=== PATIENT | female | born 1945 | race Caucasian/White ===

== ENCOUNTER 2020-03-09 11:56 | Emergency (ER) | payer BC ==
[2020-03-09] MEDS ORDERED: TETANUS AND DIPHTHERIA TOXOID 0.5 ML DISP.SYRIN IM ONE (12:12)
--- NOTE | 2020-03-09 12:18 | PDOC ---
History of Present Illness - General Chief Complaint: Injury Stated Complaint: FALL ON SATURDAY Time Seen by Provider: 03/09/20 12:01 History Source: Patient Exam Limitations: No Limitations - History of Present Illness Initial Comments: 03/09/20 12:13 74 yo F h/o vertigo p/w fall on saturday. Patient doesn't think there was anything on the floor that she tripped over. DEnies CP, SOB, or worsening dizziness prior to the fall or afterwards. States she has vertigo at baseline and is taking meclizine. Is usually ambulatory with a cane which helps her feel more stable on her feet. She's not sure if she was using her cane to walk on saturday (unable to recall) because she was only walking a short distance of ~5-6 feet. Of note, family reports that patient was drinking on saturday (as per family patient drinks many days). Denies LOC. Takes asa but otherwise no a/c use. Reports bleeding from her scalp at the time, none now. Only came to the ED today because her daughter came over and saw the dried blood on the floor from the fall and insisted her mother come the ED. Patient has no complaints at this time. Last tetanus unknown. Past History - Medical History Allergies/Adverse Reactions: Allergies Allergy/AdvReac Type Severity Reaction Status Date / Time No Known Allergies Allergy Verified 03/09/20 11:57 Home Medications: Ambulatory Orders Aspirin [ASA -] 81 mg PO DAILY 03/09/20 Atorvastatin Ca [Lipitor] 10 mg PO HS 03/09/20 Meclizine HCl 25 mg PO HS 03/09/20 Metformin HCl [Glucophage] 500 mg PO DAILY 03/09/20 Pramipexole Di-HCl [Mirapex] 2 mg PO BID 03/09/20 Sertraline HCl 50 mg PO DAILY 03/09/20 Review of Systems - Review of Systems Able to Perform ROS?: Yes Comments:: 03/09/20 12:16 GENERAL/CONSTITUTIONAL: No fever or chills. No weakness. HEAD, EYES, EARS, NOSE AND THROAT: No change in vision. No ear pain or discharge. No sore throat. CARDIOVASCULAR: No chest pain or shortness of breath. RESPIRATORY: No cough, wheezing, or hemoptysis. GASTROINTESTINAL: No nausea, vomiting, diarrhea or constipation. GENITOURINARY: No dysuria, frequency, or change in urination. MUSCULOSKELETAL: No joint or muscle swelling or pain. No neck or back pain. SKIN: No rash. NEUROLOGIC: No headache, loss of consciousness, or change in strength/sensation. +vertigo unchanged from baseline ENDOCRINE: No increased thirst. No abnormal weight change. HEMATOLOGIC/LYMPHATIC: No anemia, easy bleeding, or history of blood clots. ALLERGIC/IMMUNOLOGIC: No hives or skin allergy. *Physical Exam - Physical Exam 03/09/20 12:16 GENERAL: Well appearing, in no acute distress HEAD: + hematoma to superior occiput with dried blood but no active bleeding, no racoon eyes, no jackson sign EYES: EOMI, sclera anicteric, conjunctiva clear, no nystagmus ENT: Auricles normal inspection, nares patent, oropharynx clear without exudates. MMM NECK: Normal ROM, supple LUNGS: CTAB. Good air entry. No wheezes, No Rhonchi and no crackles HEART: RRR, + s1 s2 ABDOMEN: Soft, nontender, normoactive bowel sounds. No guarding, no rebound. No masses BACK: no midline or paraspinal tenderness. No CVA tenderness. EXTREMITIES: Warm and well perfused. No LE edema. FROM. No clubbing or cyanosis. No cords, erythema, or tenderness NEUROLOGICAL: Aox3, Speech fluent, face symmetric, tongue/uvula midline. Sensation grossly intact to light touch. Ambulatory with steady gait with cane. Strength intact. Finger to nose intact and symmetric b/l. No focal deficits. ED Treatment Course - RADIOLOGY Radiology Studies Ordered: Category Date Time Status CERVICAL SPINE CT W/O CONTR [CT] Stat CT Scan 03/09/20 12:[address] WITHOUT CONTRAST [CT] Stat CT Scan 03/09/20 12:11 Ordered Medical Decision Making - Medical Decision Making 03/09/20 12:18 74 yo F with fall on saturday likely 2/2 unsteady gait from vertigo vs. etoh intox, +hematoma to scalp but no active bleeding and no other injuries or complaints. Doubt syncopal episode as patient reports no LOC and no preceding symptoms and hx and exam more consistent with fall 2/2 etoh intox vs. vertigo. Plan: -CT head -CT c-spine -tetanus -reassess This clinical encounter is taking place during a federal and state health care emergency attributable to the novel Larios Virus pandemic. The [employer] of the Department of Health and Human Services has declared, pursuant to the Public Health Service Act 319F-3 (42 U.S.C. 247d-6d), that a covered persons activities related to medical countermeasures against COVID-19 will be immune from liability under Federal and State law. 03/09/20 13:35 imaging without any acute findings. Will d/c with return precautions, recommend PMD f/u as needed Discharge - Discharge Information Problems reviewed: Yes Clinical Impression/Diagnosis: Fall Qualifiers: Encounter type: initial encounter Qualified Code(s): W19.XXXA - Unspecified fall, initial encounter Condition: Stable Disposition: HOME - Admission No - Follow up/Referral - Patient Discharge Instructions Patient Printed Discharge Instructions: How to Prevent Falls Additional Instructions: Your CT scan did not show any evidence of bleeding in the brain. Return to the ED for new or worsening symptoms. You should follow up with your PMD. - Post Discharge Activity
[2020-03-09 12:30] VITALS: BP 128/81; PULSE 91; TEMP 98.7; BMI 21.7
[2020-03-09] MEDS ORDERED: DIPHTH,PERTUSS(ACELL),TET 0.5 ML DISP.SYRIN IM ONE ×2 (13:37→13:41)
== END 2020-03-09 13:47 | disposition home or self-care (01) ==
LOC: FER 11:56
PROC: 3E0234Z Introduction of Serum, Toxoid and Vaccine into Muscle, Percutaneous Approach (ICD-10-PCS; principal; 2020-03-09)
DX: S09.90XA Unspecified injury of head, initial encounter (principal)
CPT/HCPCS: 70450-TC; 72125-TC; 90715; 99284-25

== ENCOUNTER 2020-04-16 15:11 | Emergency (ER) | payer BC ==
[2020-04-16 15:21] VITALS: BMI 20.9
--- NOTE | 2020-04-16 16:57 | PDOC ---
History of Present Illness - General Chief Complaint: Head/Neck problem Stated Complaint: ALLREGIC REACTION Time Seen by Provider: 04/16/20 15:53 - History of Present Illness Initial Comments: 04/16/20 17:47 74F with PMH of DM and normal pressure hydrocephalus, peripheral neuropathy, DM, and TIAs presents to the ED with complaint of headache with nausea/vomiting last night of 1 episode, but no current nausea or vomiting. The patient was seen by her neurologist Dr. 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 The patient is concerned that her n/v, headache and neck pain are due to the new medication. The patient reports baseline vertigo that is unchanged. She reports LE numbness/tingling that's worse from baseline. Otherwise, denies vision changes, recent falls/trauma, weakness chest pain, SOB. PMH: as in HPI SH: see below Meds: aggrenox, metformin, meclizine Allergies: NKDA Tob/Etoh/Rec drugs: neg x3 ROS GENERAL/CONSTITUTIONAL: No fever or chills. No weakness. HEENT: No change in vision. No ear pain or discharge. No sore throat. CARDIOVASCULAR: No chest pain or shortness of breath RESPIRATORY: No cough, wheezing, or hemoptysis. GASTROINTESTINAL: No nausea, vomiting; no diarrhea or constipation. GENITOURINARY: No dysuria, frequency, or change in urination. MUSCULOSKELETAL: No joint or muscle swelling or pain. +neck pain (right) SKIN: No rash NEUROLOGIC: + headache, vertigo; no loss of consciousness, or change in strength/sensation. ENDOCRINE: No increased thirst. No abnormal weight change HEMATOLOGIC/LYMPHATIC: No anemia, easy bleeding, or history of blood clots. ALLERGIC/IMMUNOLOGIC: No hives or skin allergy. PE GENERAL: Awake, alert, and fully oriented; no acute distress HEAD: No signs of trauma, normocephalic, atraumatic EYES: PERRLA, EOMI, sclera anicteric, conjunctiva clear ENT: Auricles normal inspection, hearing grossly normal, nares patent, moist mucosa, oropharynx clear without exudates. NECK: Normal ROM, supple, no LAD, JVD, or masses HEART: Regular rate and rhythm, normal S1/S2, no murmurs, rubs or gallops, peripheral pulses normal and equal bilaterally. LUNGS: No distress, speaks full sentences, clear to auscultation bilaterally ABDOMEN: Soft, nontender. No guarding, no rebound. No masses EXTREMITIES: Normal inspection, Normal range of motion, no edema. No clubbing or cyanosis. NEUROLOGICAL: CNII-XII grossly intact. Normal speech, no focal sensorimotor deficits, [id number] intact SKIN: Warm, Dry, normal turgor, no rashes or lesions noted Assessment and Plan 1. TIA 2. Normal pressure hydrocephalus 3. Tension HORTON 4. Vertebral dissection Loyd Anand, PGY1 Emergency Medicine Past History - Medical History Allergies/Adverse Reactions: Allergies Allergy/AdvReac Type Severity Reaction Status Date / Time No Known Allergies Allergy Verified 04/16/20 15:12 Home Medications: Ambulatory Orders Atorvastatin Ca [Lipitor] 10 mg PO HS 03/09/20 Meclizine HCl 25 mg PO HS 03/09/20 Metformin HCl [Glucophage] 500 mg PO DAILY 03/09/20 Aspirin [ASA -] 81 mg PO DAILY #30 tab.chew 04/16/20 Aspirin/Dipyridamole [Aggrenox -] mg PO BID 04/16/20 Clopidogrel Bisulfate [Plavix] 75 mg PO DAILY #30 tablet 04/16/20 COPD: No - Surgical History Appendectomy: Yes - Psycho-Social/Smoking History Smoking History: Never smoked Have you smoked in the past 12 months: No - Substance Abuse Hx (Audit-C & DAST Scrn) How often the patient has a drink containing alcohol: Never Score: In Men: 4 or > Positive; In Women: 3 or > Positive: 0 Screen Result (Pos requires Nsg. Audit-10AR): Negative In the last yr the pt used illegal drug/Rx for NonMed reason: No Score: Yes response is considered Positive: 0 Screen Result (Positive result requires Nsg. DAST-10): Negative *Physical Exam - Vital Signs Last Vital Signs Temp Pulse Resp BP Pulse Ox 97.4 F L 100 H 18 114/74 96 04/16/20 15:12 04/16/20 15:12 04/16/20 15:12 04/16/20 15:12 04/16/20 15:12 Medical Decision Making - Medical Decision Making 04/16/20 18:43 74F with PMH of DM and normal pressure hydrocephalus, peripheral neuropathy, DM, and TIAs presents to the ED with complaint of headache with nausea/vomiting last night of 1 episode, but no current nausea or vomiting. The patient was seen by her neurologist Dr. 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 The patient is concerned that her n/v, headache and neck pain are due to the new medication. The patient reports baseline vertigo that is unchanged. She reports LE numbness/tingling that's worse from baseline. Otherwise, denies vision changes, recent falls/trauma, weakness chest pain, SOB. Neuro exam intact. No workup appears necessary at this time. Spoke with Dr. Prado, advised switching aggrenox to ASA + plavix and the patient was scheduled to follow up with him on Thursday 04/19. Patient stable for discharge. Discharge - Discharge Information Problems reviewed: Yes Clinical Impression/Diagnosis: Medication side effect Condition: Stable Disposition: HOME - Admission No - Additional Discharge Information Prescriptions: Aspirin [ASA -] 81 mg PO DAILY #30 tab.chew Clopidogrel Bisulfate [Plavix] 75 mg PO DAILY #30 tablet - Follow up/Referral Referrals: Delano Swift [Primary Care Provider] - Che Yusuf MD [Staff Physician] - - Patient Discharge Instructions Additional Instructions: Return to the emergency department immediately with ANY new, persistent or worsening symptoms. Stop taking the Aggrenox, start taking the Plavix and aspirin tomorrow. You MUST call and follow up with on Saturday for further evaluation of your symptoms. Results were discussed with you. Please make sure your doctor reviews the results of your emergency evaluation. Your Emergency Department visit is not complete without a follow up with your doctor. Print Language: GUINEAN - Post Discharge Activity
--- NOTE | 2020-04-16 18:36 | PDOC ---
Attending Attestation - Resident Resident Name: Loyd Anand - ED Attending Attestation I have performed the following: I have examined & evaluated the patient, The case was reviewed & discussed with the resident, I agree w/resident's findings & plan, Exceptions are as noted - HPI HPI: 04/16/20 18:36 74y F hx of recently diagnosed cva Discharge - Follow up/Referral Referrals: Delano Swift [Primary Care Provider] - - Patient Discharge Instructions - Post Discharge Activity
--- NOTE | 2020-04-16 18:39 | PDOC ---
Documentation entered by Myah Aparicio SCRIBE, acting as scribe for Jeb Tavares MD. Jeb Tavares MD: This documentation has been prepared by the scribe, Myah Aparicio SCRIBE, under my direction and personally reviewed by me in its entirety. I confirm that the documentation accurately reflects all work, treatment, procedures, and medical decision making performed by me. Attending Attestation - Resident Resident Name: Loyd Anand - ED Attending Attestation I have performed the following: I have examined & evaluated the patient, The case was reviewed & discussed with the resident, I agree w/resident's findings & plan, Exceptions are as noted - HPI HPI: 04/16/20 16:59 Patient is a 74 year old female with a significant past medical history of peripheral neuropathy, vertigo, diabetes, TIAs, and normal pressure h ydrocephalus, who presents to the ED with a headache and associated nausea/ vomiting since last night. Patient stated she had one episode of NBNB vomiting last night. Patient disclosed that she believes her symptoms are associated with the new medication she has been put on recently by her neurologist. Patient endorses: lower extremity tingling/numbness. Patient denies: current nausea or vomiting; recent falls/traumas, weakness, any vision changes, SOB, chest pain, or any other related symptoms. Allergies: NKDA - Physicial Exam PE: 04/16/20 18:37 GENERAL: The patient is awake, alert, and fully oriented, Nontoxic - in no acute distress. HEAD: Normocephalic, atraumatic. LUNGS: Breath sounds equal, clear to auscultation bilaterally. No wheezes, no rhonchi, no rales. HEART: Regular rate and rhythm, normal S1 and S2 without murmur, rub or gallop. ABDOMEN: Soft, nontender, No guarding, no rebound. No CVA tenderness EXTREMITIES: Normal range of motion, no edema. NEUROLOGICAL: No facial assymetry, Normal speech, movng all 4 ext spontaneously and symmetrically - Medical Decision Making 04/16/20 18:37 side effect from meds will change to asa / plavix will dc with neuro fu return precautions were discussed Discharge - Discharge Information Problems reviewed: Yes Clinical Impression/Diagnosis: Medication side effect Condition: Stable Disposition: HOME - Admission No - Follow up/Referral Referrals: Delano Swift [Primary Care Provider] - Che Yusuf MD [Staff Physician] - - Patient Discharge Instructions Additional Instructions: Return to the emergency department immediately with ANY new, persistent or worsening symptoms. Stop taking the Aggrenox, start taking the Plavix and aspirin tomorrow. You MUST call and follow up with on Saturday for further evaluation of your symptoms. Results were discussed with you. Please make sure your doctor reviews the results of your emergency evaluation. Your Emergency Department visit is not complete without a follow up with your doctor. Print Language: SINGAPOREAN - Post Discharge Activity
[2020-04-16 18:47] VITALS: BP 138/80; PULSE 84; TEMP 98.3
== END 2020-04-16 18:51 | disposition home or self-care (01) ==
LOC: JER 15:11
DX: T50.995A Adverse effect of other drugs, medicaments and biological substances, initial encounter (principal)
CPT/HCPCS: 99282-25

== ENCOUNTER 2020-12-05 14:17 | Emergency (ER) | payer BC ==
[2020-12-05 14:34] VITALS: BP 153/90; PULSE 94; TEMP 98.2; BMI 26.9
[2020-12-05] MEDS ORDERED: METHOCARBAMOL 500 MG TABLET PO ONE (15:27)
[2020-12-05] MEDS ORDERED: LIDOCAINE 5% TOPICAL PATCH TP ONE (15:27)
[2020-12-05] MEDS ORDERED: LIDOCAINE 5% TOPICAL PATCH ONE (15:34)
[2020-12-05] MEDS ORDERED: METHOCARBAMOL 500 MG TABLET ONE (15:37)
== END 2020-12-05 16:35 | disposition home or self-care (01) ==
LOC: JER 14:17
DX: S46.912A Strain of unspecified muscle, fascia and tendon at shoulder and upper arm level, left arm, initial encounter (principal)
CPT/HCPCS: 73010-TC-FY; 73030-TC-LT-FY; 99284-25

== ENCOUNTER 2021-07-28 10:09 | Inpatient (IN) | payer BC ==
[2021-07-28 10:35] VITALS: BMI 25.7
[2021-07-28 12:16] LABS: BASO % 0.3 % (0-2.0); EOS % 1.1 % (0-4.5); HEMATOCRIT 38.3 % (32.4-45.2); HEMOGLOBIN 13.4 GM/dL (10.7-15.3); LYMPH % 10.6 % (8-40); MCH 33.7 pg (25.7-33.7); MCHC 34.9 g/dl (32.0-36.0); MEAN CELL VOLUME 96.6 fl (80-96); MEAN PLT VOLUME 8.1 fl (7.5-11.1); MONO % 10.4 % (3.8-10.2); NEUT % 77.6 % (42.8-82.8); PLATELET COUNT 208 10^3/uL (134-434); RBC 3.97 M/mm3 (3.60-5.2); RDW 12.5 % (11.6-15.6); WHITE BLOOD COUNT 8.4 K/mm3 (4.0-10.0)
[2021-07-28 12:44] LABS: INR 1.16 (0.83-1.09)
[2021-07-28 12:47] LABS: ACTIVATED PTT 31.5 SECONDS (25.2-36.5)
[2021-07-28 12:48] LABS: CALCIUM 8.6 mg/dL (8.5-10.1)
[2021-07-28 12:49] LABS: ALBUMIN 3.1 g/dl (3.4-5.0); BLOOD UREA NITROGEN 14.8 mg/dL (7-18)
[2021-07-28 12:52] LABS: CREATININE 0.5 mg/dL (0.55-1.3)
[2021-07-28 12:54] LABS: BILIRUBIN,TOTAL 0.7 mg/dL (0.2-1); TOT PROT 6.6 g/dl (6.4-8.2)
[2021-07-29 14:13] VITALS: BP 106/69; PULSE 82; TEMP 98.2
== END 2021-07-29 16:09 | disposition home or self-care (01) | DRG 349 ==
LOC: JER 10:09 → JERBED 14:28 → J8W 17:31
PROVIDERS: ADMIT Internal Medicine; ATTEND Internal Medicine
PROC: 0D9Q0ZZ Drainage of Anus, Open Approach (ICD-10-PCS; principal; 2021-07-28)
PROC: 0JBB0ZZ Excision of Perineum Subcutaneous Tissue and Fascia, Open Approach (ICD-10-PCS; 2021-07-28)
DX: K61.0 Anal abscess (principal); E11.39 Type 2 diabetes mellitus with other diabetic ophthalmic complication; H40.9 Unspecified glaucoma
CPT/HCPCS: 36415; 71045-TC-FY; 72193-TC; 80053; 82272; 85025; 85610; 85730; 86850; 86900; 86901; 87070; 87186; 87205; 93005; 93010; 94760; 99285-25; C9803; Q9967; U0003; U0005